=== PATIENT | male | born 1995 | race Caucasian/White ===

== ENCOUNTER 2025-01-18 11:10 | Emergency (ER) | payer MEDICAID ==
[~2025-01-18] VITALS: Ht 180.3 cm; Wt 74.8 kg
[2025-01-18] MEDS: IBUPROFEN 400 MG TABLET PO ONE (11:27)
[2025-01-18 12:46] VITALS: BP 122/58; TEMP 98.3; O2SAT 98
[2025-01-18] MEDS ORDERED: IBUPROFEN 400 MG TABLET ONE (12:49)
== END 2025-01-18 12:55 | disposition home or self-care (01) ==
LOC: ER 11:10
DX: M79.641 Pain in right hand (principal)
CPT/HCPCS: 73130-TC